=== PATIENT | male | born 1965 | race Caucasian/White ===

== ENCOUNTER 2019-10-01 07:34 | Emergency (ER) | payer OTHER ==
[~2019-10-01] VITALS: Ht 180.3 cm; Wt 90.7 kg
--- NOTE | 2019-10-01 07:35 | NUR ---
PT BIB SELF C/O GEN WEAKNESS FOR 5 DAYS. 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 WILL CONTINUE TO MONITOR.
--- NOTE | 2019-10-01 07:45 | NUR ---
AT BEDSIDE FOR EVAL.
--- NOTE | 2019-10-01 08:00 | NUR ---
AUGUST CHAKRABORTY AT BEDSIDE FOR EKG.
[2019-10-01 08:21] LABS: BASOPHILS # (AUTO) 0.1 /CMM (0.0-0.2); BASOPHILS % (AUTO) 0.6 % (0.0-2.0); EOSINOPHILS % (AUTO) 0.3 % (0.0-6.0); HEMATOCRIT 47 % (39-51); HEMOGLOBIN 16.1 g/dL (13.5-17.5); LYMPHOCYTES # (AUTO) 1.3 /CMM (0.8-4.8); LYMPHOCYTES % (AUTO) 16.2 % (20.0-44.0); MEAN CORPUSCULAR HGB CONC 34 g/dl (31.0-36.0); MEAN CORPUSCULAR VOLUME 91 fL (80-96); MONOCYTES # (AUTO) 0.4 /CMM (0.1-1.30); MONOCYTES % (AUTO) 4.5 % (2.0-12.0); NEUTROPHILS # (AUTO) 6.2 /CMM (1.8-8.9); NEUTROPHILS % (AUTO) 78.4 % (43.0-81.0); PLATELET COUNT (AUTO) 272 /CMM (150-450); WHITE BLOOD COUNT (AUTO) 7.9 K/uL (4.3-11.0)
[2019-10-01] MEDS ORDERED: MAG HYDROX/AL HYDROX/SIMETH 30 ML UDC ONE (08:27)
[2019-10-01] MEDS ORDERED: LIDOCAINE VISCOUS 2% UD 15 ML UDC ONE (08:27)
[2019-10-01] MEDS: MAG HYDROX/AL HYDROX/SIMETH 30 ML UDC PO ONE (08:31)
[2019-10-01] MEDS: LIDOCAINE VISCOUS 2% UD 15 ML UDC MM ONE (08:31)
--- NOTE | 2019-10-01 08:32 | NUR ---
PT IS WHEELED TO CT SCAN VIA [facility].
[2019-10-01 08:39] LABS: CALCIUM, SERUM 8.3 mg/dL (8.5-10.1); CARBON DIOXIDE 21 mmol/L (21-32); CHLORIDE 102 mmol/L (98-107); CREATININE 0.9 mg/dL (0.6-1.3); GLUCOSE 102 mg/dL (74-106); POTASSIUM 3.7 mmol/L (3.5-5.1); SODIUM SERUM 139 mmol/L (136-145); UREA NITROGEN, BLOOD 17 mg/dL (7-18)
[2019-10-01 08:43] LABS: ALANINE AMINOTRANSFERASE 77 U/L (12-78); ALBUMIN 4.3 g/dL (3.4-5.0); ALKALINE PHOSPHATASE 74 U/L (46-116); ASPARTATE AMINOTRANSFERASE 54 U/L (15-37); BILIRUBIN,DIRECT 0.2 mg/dL (0.0-0.2); BILIRUBIN,TOTAL 0.4 mg/dL (0.2-1.0); TOTAL PROTEIN, SERUM 7.8 g/dL (6.4-8.2)
--- NOTE | 2019-10-01 09:10 | NUR ---
Patient discharged to home in stable condition. Written and verbal after care instructions given. Patient verbalizes understanding of instruction.
[2019-10-01 09:11] VITALS: BP 139/93
== END 2019-10-01 09:11 | disposition home or self-care (01) ==
LOC: ER 07:45
DX: R41.82 Altered mental status, unspecified (principal); R12 Heartburn; I25.10 Atherosclerotic heart disease of native coronary artery without angina pectoris; K21.9 Gastro-esophageal reflux disease without esophagitis; F41.9 Anxiety disorder, unspecified; G47.00 Insomnia, unspecified
CPT/HCPCS: 36415; 70450-TC; 71045-TC; 80048-TC; 80076-TC; 84484-TC; 85025-TC

== ENCOUNTER 2019-10-16 06:53 | Emergency (ER) | payer OTHER ==
[~2019-10-16] VITALS: Ht 180.3 cm; Wt 90.7 kg
--- NOTE | 2019-10-16 07:21 | NUR ---
SEEN AND EXAMINED BY MD OJEDA
--- NOTE | 2019-10-16 07:21 | NUR ---
PATIENT CAME TO BED 11 C/O FATIGUE, AND VOMITING FOR THE PAST 3 WEEKS. PATIENT STATES THAT HE HAD A LAST BOWEL MOVEMENT LAST WEEK. PATIENT URINATED LAST NIGHT W/ MINIMAL AMOUNT AND DARK YELLOW. PATIENT STATES THAT HE WAS HERE IN [facility] ER FOR THE SAME ISSUE WITH NO IMPROVEMENT. PATIENT IS AAOX4. NO SOB. BREATHING EVENLY AND UNLABORED ON ROOM AIR. CONNECTED TO THE MONITOR.
--- NOTE | 2019-10-16 07:25 | NUR ---
UNABLE TO PROVIDE URINE AT THIS TIME.
[2019-10-16] MEDS ORDERED: ONDANSETRON HCL/PF 4 MG/2 ML VIAL IVP ONE ×2 (07:30→09:00)
[2019-10-16] MEDS ORDERED: IV NS 0.9% 1,000 ML BAG IV ONE (07:30)
[2019-10-16] MEDS ORDERED: ONDANSETRON HCL/PF 4 MG/2 ML VIAL ONE ×2 (07:42→08:47)
[2019-10-16 07:46] LABS: BASOPHILS # (AUTO) 0.1 /CMM (0.0-0.2); BASOPHILS % (AUTO) 1.9 % (0.0-2.0); EOSINOPHILS % (AUTO) 0.4 % (0.0-6.0); HEMATOCRIT 43 % (39-51); HEMOGLOBIN 14.6 g/dL (13.5-17.5); LYMPHOCYTES # (AUTO) 0.8 /CMM (0.8-4.8); LYMPHOCYTES % (AUTO) 23.4 % (20.0-44.0); MEAN CORPUSCULAR HGB CONC 34 g/dl (31.0-36.0); MEAN CORPUSCULAR VOLUME 91 fL (80-96); MONOCYTES # (AUTO) 0.2 /CMM (0.1-1.30); MONOCYTES % (AUTO) 6.1 % (2.0-12.0); NEUTROPHILS # (AUTO) 2.4 /CMM (1.8-8.9); NEUTROPHILS % (AUTO) 68.2 % (43.0-81.0); PLATELET COUNT (AUTO) 110 /CMM (150-450); RED BLOOD CELL COUNT(AUTO) 4.75 MIL/uL (4.5-6.0); WHITE BLOOD COUNT (AUTO) 3.6 K/uL (4.3-11.0)
[2019-10-16 08:15] LABS: CALCIUM, SERUM 9.8 mg/dL (8.5-10.1); CARBON DIOXIDE 25 mmol/L (21-32); CHLORIDE 97 mmol/L (98-107); CREATININE 0.9 mg/dL (0.6-1.3); GLUCOSE 135 mg/dL (74-106); POTASSIUM 3.3 mmol/L (3.5-5.1); SODIUM SERUM 139 mmol/L (136-145); UREA NITROGEN, BLOOD 19 mg/dL (7-18)
[2019-10-16 08:20] LABS: ALANINE AMINOTRANSFERASE 274 U/L (12-78); ALBUMIN 3.7 g/dL (3.4-5.0); ALKALINE PHOSPHATASE 67 U/L (46-116); ASPARTATE AMINOTRANSFERASE 282 U/L (15-37); BILIRUBIN,DIRECT 0.1 mg/dL (0.0-0.2); BILIRUBIN,TOTAL 0.4 mg/dL (0.2-1.0); TOTAL PROTEIN, SERUM 7.5 g/dL (6.4-8.2)
[2019-10-16 08:28] LABS: BILIRUBIN,URINE SMALL (NEGATIVE); BLOOD, URINE Moderate Ery/uL (NEGATIVE); KETONES,URINE Trace (NEGATIVE); LEUKOCYTE ESTERASE ,URINE Negative (NEGATIVE); NITRITE, URINE Negative (NEGATIVE); PROTEIN,URINE 100 mg/dl (NEGATIVE); UGLUCOSE Negative (NEGATIVE); UROBILINOGEN,URINE 0.2 EU/dL (0.2)
[2019-10-16 08:31] LABS: APPEARANCE,URINE SLIGHTLY HAZY (CLEAR); COLOR,URINE DARK YELLOW (YELLOW)
[2019-10-16 08:39] LABS: BACTERIA,URINE Few /HPF (None Seen); MUCUS,URINE Many /LPF (None Seen); SQUAMOUS EPITHELIAL CELL,UR Few /HPF (None Seen)
[2019-10-16 09:09] VITALS: BP 129/62
--- NOTE | 2019-10-16 09:09 | NUR ---
IV removed. Catheter intact and site benign. Pressure and 4x4 applied to site. No bleeding noted.Patient discharged to home in stable condition. Written and verbal after care instructions given. Patient verbalizes understanding of instruction.
[2019-10-16 09:36] LABS: LYMPHOCYTES % (MANUAL) 19 % (16-48); MONOCYTES % (MANUAL) 6 % (0-11.0); NEUTROPHILS % (MANUAL) 75 (42-76)
== END 2019-10-16 09:25 | disposition home or self-care (01) ==
LOC: ER 06:53
DX: R41.82 Altered mental status, unspecified (principal); R11.2 Nausea with vomiting, unspecified; F17.200 Nicotine dependence, unspecified, uncomplicated
CPT/HCPCS: 36415; 71045; 80048; 80076; 81001; 84484; 85025; 93005; 96361; 96374; 96376; 99285; 99406; J2405 ×2; J7030; 81000-TC